=== PATIENT | male | born 1995 | race Caucasian/White ===

== ENCOUNTER 2023-06-09 11:23 | Emergency (ER) | payer OTHER ==
[~2023-06-09] VITALS: Ht 165.1 cm; Wt 72.6 kg
[2023-06-09 13:30] VITALS: BP 122/67; TEMP 98.4; O2SAT 100
== END 2023-06-09 13:30 ==
LOC: ER 11:34
DX: Z04.1 Encounter for examination and observation following transport accident (principal); V89.2XXA Person injured in unspecified motor-vehicle accident, traffic, initial encounter; Y93.89 Activity, other specified; Y92.89 Other specified places as the place of occurrence of the external cause; Y99.8 Other external cause status